=== PATIENT | male | born 1940 | race Caucasian/White ===

== ENCOUNTER 2016-10-04 06:44 | Day surgery (SDC) | payer MEDICARE ==
--- NOTE | ~2016-10-04 | EGD ---
EGD REPORT [facility] [address] [address] NAME: NGHIA FARIAS : 36 STATUS : REG [facility] PAT#: [id number] AGE: 76 ADM/REG DATE : 10/04/16 MR#: [id number] REPORT SERV DATE: 10/04/16 DICTATED BY: JACOBY OROZCO DATE: 10/04/16 REPORT STATUS : Draft [facility]ANSCRIBED BY: [facility] DATE: 10/04/16 Endoscopy Center Patient Name: Nghia Farias Date of : 1940 Attending MD: JACOBY OROZCO MD Procedure Date No Time: 10/04/2016 Procedure: Upper GI endoscopy Indications: Dysphagia, Heartburn; Prevacid 15mg bid. Patient Profile: Informed consent was obtained from the patient by me prior to the procedure. Risks, benefits, and alternatives were discussed including the risk of bleeding, perforation, infection, reaction to medicine, missed lesion, and cardiopulmonary complications. Referring MD: PRISCILA MCDONALD Medicines: Monitored Anesthesia Care Complications: No immediate complications. Procedure: Pre-Anesthesia Assessment: - ASA Grade Assessment: III - A patient with severe systemic disease. After obtaining informed consent, the endoscope was passed under direct vision. Throughout the procedure, the patient's blood pressure, pulse, and oxygen saturations were monitored continuously. The GIF H190 [id number] was introduced through the mouth, and advanced to the second part of duodenum. The endoscope was withdrawn with careful examination all mucosal surfaces including retroflexion stomach. The upper GI endoscopy was accomplished without difficulty. The patient tolerated the procedure well. Findings: The examined duodenum was normal. The entire examined stomach was normal. Russell intact. A benign-appearing, intrinsic moderate stenosis was found throughout esophagus; diffuse rings. Biopsies were taken with a cold forceps for histology from mid and upper. 39-42F Savary dilation performed over guidewire held in antrum; moderate resistance to dilation; endoscopic visualization afterwards superficial mucosal breaks mid and upper esophagus. Impression: - Normal examined duodenum. - Normal stomach. - Benign-appearing esophageal stricture. Biopsied. Dilated. EGD REPORT [address] [address] NAME: NGHIA FARIAS : [birth year] STATUS : REG [facility] PAT#: [id number] AGE: 76 ADM/REG DATE : 10/04/16 MR#: [id number] REPORT SERV DATE: 10/04/16 DICTATED BY: JACOBY OROZCO DATE: 10/04/16 REPORT STATUS : Draft TRANSCRIBED BY: [employer] DATE: 10/04/16 Recommendation: - Patient has a contact number available for emergencies. The signs and symptoms of potential delayed complications were discussed with the patient. Return to normal activities tomorrow. Written discharge instructions were provided to the patient. - Regular diet. - Continue present medications. - Await pathology results. - Restart ASA tomorrow, Plavix in 3 days. - Liquid diet 24 hours. - EGD Mem AA 3 months. Procedure Code(s): --- Professional --- 55478, Esophagogastroduodenoscopy, flexible, transoral; with insertion of guide wire followed by passage of dilator(s) through esophagus over guide wire 43342, Esophagogastroduodenoscopy, flexible, transoral; with biopsy, single or multiple Diagnosis Code(s): --- Professional --- K22.2, Esophageal obstruction R13.10, Dysphagia, unspecified R12, Heartburn CPT copyright 2013 [employer]. All rights reserved. The codes documented in this report are preliminary and upon chemical engineering intern review may be revised to meet current compliance requirements. JACOBY OROZCO MD 10/04/2016 8:53 AM This report has been signed electronically. Number of Addenda: 0 Note Initiated On: 10/04/2016 7:49 AM Scope Withdrawal Time 0 hours 0 minutes 0 seconds
[~2016-10-04 06:44] MED LIST: ASAB PO; CALCIUM GUMMY PO; CRESTOR5 MG PO; HCTZ25B PO; HYDROCHLOROT25 MG PO; HYT5 PO; K-TABS10 MEQ PO; KLOR-CON 1010 MEQ PO; L20 PO; LEVSINTAB SL; LEXAPRO10 PO; LIPITOR10 PO; MAG-SR535 MG PO; MAGNESIUM PO; MOBIC15 MG PO; MOBIC7.5 PO; MULTIPLE VIT PO; MULTIVIT/MIN PO; NORCO1 TA2 PO; OS500+D PO; OTC EYE DROPS OP; PLAVIX PO; PREV15 PO; PREV30 PO; PRILO PO; PRIN10 PO; PROAIR HFA INH; SINGULAIR1 PO; SUCR PO; TUMSROLL PO; ULTRAM50 PO; X5 PO; ZANTAC300 MG PO; ZESTRIL30 MG PO; ZYRTEC ALLGY10 MG PO
== END 2016-10-04 23:59 | disposition home or self-care (01) ==
LOC: DMU 06:44
PROVIDERS: Internal Medicine Gastroenterology
PROC: 0DB58ZX Excision of Esophagus, Via Natural or Artificial Opening Endoscopic, Diagnostic (ICD-10-PCS; principal; 2016-10-04 08:30)
PROC: 0D758ZZ Dilation of Esophagus, Via Natural or Artificial Opening Endoscopic (ICD-10-PCS; 2016-10-04 08:30)
DX: K20.8 Other esophagitis (principal); K22.2 Esophageal obstruction; R13.10 Dysphagia, unspecified; R12 Heartburn; I25.10 Atherosclerotic heart disease of native coronary artery without angina pectoris; N40.0 Benign prostatic hyperplasia without lower urinary tract symptoms; I10 Essential (primary) hypertension; F41.9 Anxiety disorder, unspecified; Z98.890 Other specified postprocedural states; Z95.5 Presence of coronary angioplasty implant and graft; Z95.1 Presence of aortocoronary bypass graft; Z79.899 Other long term (current) drug therapy; Z79.82 Long term (current) use of aspirin; Z88.1 Allergy status to other antibiotic agents; Z88.8 Allergy status to other drugs, medicaments and biological substances
CPT/HCPCS: 88305; J2405

== ENCOUNTER 2016-12-20 08:19 | Day surgery (SDC) | payer MEDICARE ==
--- NOTE | ~2016-12-20 | EGD ---
EGD REPORT [facility] [address] [address] NAME: NGHIA FARIAS : 36 STATUS : REG [facility] PAT#: [id number] AGE: 76 ADM/REG DATE : 12/20/16 MR#: [id number] REPORT SERV DATE: 12/20/16 DICTATED BY: JACOBY OROZCO DATE: 12/20/16 REPORT STATUS : Draft [facility] DATE: 12/20/16 Endoscopy Center Patient Name: Nghia Farias Date of : 1940 Attending MD: JACOBY OROZCO MD Procedure Date No Time: 12/20/2016 Procedure: Upper GI endoscopy Indications: Dysphagia; esophageal stricture; Prevacid 15mg bid. Patient Profile: Informed consent was obtained from the patient by me prior to the procedure. Risks, benefits, and alternatives were discussed including the risk of bleeding, perforation, infection, reaction to medicine, missed lesion, and cardiopulmonary complications. Referring MD: PRISCILA MCDONALD Medicines: Monitored Anesthesia Care Complications: No immediate complications. Procedure: Pre-Anesthesia Assessment: - ASA Grade Assessment: III - A patient with severe systemic disease. After obtaining informed consent, the endoscope was passed under direct vision. Throughout the procedure, the patient's blood pressure, pulse, and oxygen saturations were monitored continuously. The GIF H190 [id number] was introduced through the mouth, and advanced to the second part of duodenum. The endoscope was withdrawn with careful examination all mucosal surfaces including retroflexion stomach. The upper GI endoscopy was accomplished without difficulty. The patient tolerated the procedure well. Findings: The examined duodenum was normal. The entire examined stomach was normal. A benign-appearing, intrinsic moderate stenosis was found, ringed esophagus throughout. 39-42F Savary dilation performed over guidewire held in antrum; moderate resistance to dilation at 42F level; endoscopic visualization afterwards superficial mucosal breaks mid and proximal esophagus. Impression: - Normal examined duodenum. - Normal stomach. - Benign-appearing esophageal stricture. Dilated. Recommendation: - Patient has a contact number available for emergencies. The signs and symptoms of potential delayed EGD REPORT [address] [place]. [address] NAME: NGHIA FARIAS : [birth year] STATUS : REG [facility] PAT#: [id number] AGE: 76 ADM/REG DATE : 12/20/16 MR#: [id number] REPORT SERV DATE: 12/20/16 DICTATED BY: JACOBY OROZCO. DATE: 12/20/16 REPORT STATUS : Draft TRANSCRIBED BY: [employer] DATE: 12/20/16 complications were discussed with the patient. Return to normal activities tomorrow. Written discharge instructions were provided to the patient. - Regular diet. - Continue present medications. - Hold ASA/Plavix 3 days. - Repeat EGD 3 months Mem AA esophageal stricture. Procedure Code(s): --- Professional --- 75133, Esophagogastroduodenoscopy, flexible, transoral; with insertion of guide wire followed by passage of dilator(s) through esophagus over guide wire Diagnosis Code(s): --- Professional --- K22.2, Esophageal obstruction R13.10, Dysphagia, unspecified CPT copyright 2013 [employer]. All rights reserved. The codes documented in this report are preliminary and upon plate painter apprentice review may be revised to meet current compliance requirements. JACOBY OROZCO MD 12/20/2016 10:16 AM This report has been signed electronically. Number of Addenda: 0 Note Initiated On: 12/20/2016 9:56 AM Scope Withdrawal Time 0 hours 0 minutes 0 seconds [address] [place] [address]
== END 2016-12-20 23:59 | disposition home or self-care (01) ==
LOC: DMU 08:19
PROVIDERS: Internal Medicine Gastroenterology
PROC: 0D758ZZ Dilation of Esophagus, Via Natural or Artificial Opening Endoscopic (ICD-10-PCS; principal; 2016-12-20 09:30)
DX: K22.2 Esophageal obstruction (principal); R13.10 Dysphagia, unspecified; I25.10 Atherosclerotic heart disease of native coronary artery without angina pectoris; I10 Essential (primary) hypertension; H91.90 Unspecified hearing loss, unspecified ear; K44.9 Diaphragmatic hernia without obstruction or gangrene; J45.909 Unspecified asthma, uncomplicated; E78.00 Pure hypercholesterolemia, unspecified; M19.90 Unspecified osteoarthritis, unspecified site; K20.8 Other esophagitis; K21.9 Gastro-esophageal reflux disease without esophagitis; F41.9 Anxiety disorder, unspecified; Z97.2 Presence of dental prosthetic device (complete) (partial); Z95.5 Presence of coronary angioplasty implant and graft; Z95.1 Presence of aortocoronary bypass graft; Z88.1 Allergy status to other antibiotic agents; Z98.41 Cataract extraction status, right eye; Z96.1 Presence of intraocular lens; Z98.890 Other specified postprocedural states; Z79.899 Other long term (current) drug therapy; Z79.82 Long term (current) use of aspirin
CPT/HCPCS: J2405